=== PATIENT | male | born 1975 | race Caucasian/White ===

== ENCOUNTER → 2016-10-16 08:13 | Outpatient (CLI) | payer BC ==
[2014-12-28 11:50] VITALS: BMI 28.1
[~2016-10-16 08:13] MED LIST: PREDNISONE10 MG
== END ==
LOC: D.MRI 08:13
DX: G35 Multiple sclerosis (principal)

== ENCOUNTER → 2016-11-22 08:05 | Outpatient (CLI) | payer BC ==
[2014-12-28 11:50] VITALS: BMI 28.1
[2016-11-22 08:38] LABS: BASOPHILS 0.2 % (0.0-2.0); EOSINOPHILS 2.6 % (0-7); HEMATOCRIT 47.5 % (42.0-54.0); HEMOGLOBIN 17.3 g/dL (13.5-17.5); IMMATURE GRANULOCYTES 0.6 % (0-5); LYMPHOCYTES 33.9 % (15-50); MCH 31.3 pg (26.0-34.0); MCHC 36.4 g/dL (31.0-37.0); MCV 85.9 fL (80.0-100.0); MEAN PLATELET VOLUME 10.1 fL (7.4-10.4); NEUTROPHILS 54.7 % (40-80); PLATELET COUNT 185 10x3/uL (130-400); RBC 5.53 10x6/uL (4.20-6.10)
== END | disposition home or self-care (01) ==
LOC: D.LABREF 08:05
PROVIDERS: Psychiatry & Neurology Neurology
DX: G35 Multiple sclerosis (principal); Z79.899 Other long term (current) drug therapy; M25.50 Pain in unspecified joint

== ENCOUNTER → 2018-02-17 08:19 | Outpatient (CLI) | payer BC ==
[2014-12-28 11:50] VITALS: BMI 28.1
[2018-02-17 13:46] LABS: BASOPHILS 0.6 % (0-2); EOSINOPHILS 2.2 % (0-7); HEMATOCRIT 47.6 % (42.0-54.0); HEMOGLOBIN 17.7 g/dL (13.5-17.5); IMMATURE GRANULOCYTES 0.8 % (0-5); LYMPHOCYTES 27.3 % (15-50); MCH 31.6 pg (26.0-34.0); MCHC 37.2 g/dL (31.0-37.0); MEAN PLATELET VOLUME 10.2 fL (7.4-10.4); MONOCYTES 7.2 % (2-11); NEUTROPHILS 61.9 % (40-80); PLATELET COUNT 214 10x3/uL (130-400); RDW 12.7 % (11.5-14.5); WBC 6.4 10x3/uL (4.8-10.8)
[2018-02-17 14:20] LABS: ALBUMIN 4.1 g/dL (3.4-5.0); BILIRUBIN - DIRECT 0.14 mg/dL (0.00-0.30); BILIRUBIN - INDIRECT 0.47 mg/dL (0.00-1.00); BILIRUBIN - TOTAL 0.61 mg/dL (0.2-1.3); PROTEIN - SERUM 7.4 g/dL (6.4-8.2)
== END | disposition home or self-care (01) ==
LOC: D.LAB 08:19
PROVIDERS: Psychiatry & Neurology Neurology
DX: Z51.81 Encounter for therapeutic drug level monitoring (principal); Z79.899 Other long term (current) drug therapy

== ENCOUNTER → 2018-02-19 12:27 | Outpatient (CLI) | payer BC ==
[2014-12-28 11:50] VITALS: BMI 28.1
== END | disposition home or self-care (01) ==
LOC: D.MRI 12:27
DX: G35 Multiple sclerosis (principal)

== ENCOUNTER 2018-03-22 10:05 | Outpatient (CLI) | payer BC ==
[2014-12-28 11:50] VITALS: BMI 28.1
== END 2018-03-22 15:10 | disposition home or self-care (01) ==
LOC: D.OPS 10:05
DX: G35 Multiple sclerosis (principal)

== ENCOUNTER 2018-03-23 10:06 | Outpatient (CLI) | payer BC ==
[~2018-03-23] VITALS: Ht 180.3 cm; Wt 93.2 kg
[2018-03-23 10:21] VITALS: Ht 180.3 cm; Wt 93.2 kg
== END 2018-03-23 14:12 | disposition home or self-care (01) ==
LOC: D.OPS 10:06
DX: G35 Multiple sclerosis (principal)

== ENCOUNTER 2018-03-24 08:16 | Outpatient (CLI) | payer BC ==
[2018-03-22 12:07] VITALS: BMI 28.6
[~2018-03-24] VITALS: Ht 180.3 cm; Wt 93.2 kg
[2018-03-24 09:50] VITALS: Ht 180.3 cm; Wt 93.2 kg
== END 2018-03-24 12:58 | disposition home or self-care (01) ==
LOC: D.OPS 08:16
DX: G35 Multiple sclerosis (principal)

== ENCOUNTER → 2018-05-27 06:26 | Outpatient (CLI) | payer BC ==
[2018-03-24 09:50] VITALS: BMI 28.6
[2018-05-30 10:39] LABS: BASOPHILS 0.2 % (0-2); EOSINOPHILS 2.5 % (0-7); HEMATOCRIT 48.1 % (42.0-54.0); HEMOGLOBIN 17.9 g/dL (13.5-17.5); IMMATURE GRANULOCYTES 0.4 % (0-5); LYMPHOCYTES 25.2 % (15-50); MCH 31.6 pg (26.0-34.0); MCHC 37.2 g/dL (31.0-37.0); MCV 84.8 fL (80.0-100.0); MEAN PLATELET VOLUME 10.4 fL (7.4-10.4); MONOCYTES 8.2 % (2-11); NEUTROPHILS 63.5 % (40-80); PLATELET COUNT 172 10x3/uL (130-400); RBC 5.67 10x6/uL (4.20-6.10); RDW 12.9 % (11.5-14.5); WBC 4.7 10x3/uL (4.8-10.8)
[2018-05-30 11:16] LABS: BILIRUBIN - DIRECT 0.14 mg/dL (0.00-0.30)
[2018-05-30 11:21] LABS: BILIRUBIN - INDIRECT 0.26 mg/dL (0.00-1.00); BILIRUBIN - TOTAL 0.4 mg/dL (0.2-1.3); PROTEIN - SERUM 6.5 g/dL (6.4-8.2)
[2018-05-30 11:22] LABS: ALBUMIN 3.8 g/dL (3.4-5.0)
== END | disposition home or self-care (01) ==
LOC: D.LABREF 06:26
PROVIDERS: Psychiatry & Neurology Neurology
DX: G35 Multiple sclerosis (principal)

== ENCOUNTER → 2018-12-24 04:33 | Outpatient (CLI) | payer BC ==
[2018-03-24 09:50] VITALS: BMI 28.6
[2018-12-24 08:31] LABS: BASOPHILS 0.4 % (0-2); EOSINOPHILS 1.9 % (0-7); HEMATOCRIT 48.4 % (42.0-54.0); HEMOGLOBIN 17.7 g/dL (13.5-17.5); IMMATURE GRANULOCYTES 0.8 % (0-5); LYMPHOCYTES 30.1 % (15-50); MCH 31.1 pg (26.0-34.0); MCHC 36.6 g/dL (31.0-37.0); MCV 84.9 fL (80.0-100.0); MEAN PLATELET VOLUME 10.7 fL (7.4-10.4); MONOCYTES 8.2 % (2-11); NEUTROPHILS 58.6 % (40-80); PLATELET COUNT 189 10x3/uL (130-400); RDW 13.1 % (11.5-14.5); WBC 4.9 10x3/uL (4.8-10.8)
[2018-12-24 08:42] LABS: ALBUMIN 3.9 g/dL (3.4-5.0); BILIRUBIN - DIRECT 0.12 mg/dL (0.00-0.30); BILIRUBIN - INDIRECT 0.36 mg/dL (0.00-1.00); BILIRUBIN - TOTAL 0.48 mg/dL (0.2-1.3); PROTEIN - SERUM 7.3 g/dL (6.4-8.2)
== END | disposition home or self-care (01) ==
LOC: D.LABREF 04:33
PROVIDERS: ATTEND Psychiatry & Neurology Neurology
DX: G35 Multiple sclerosis (principal); Z51.81 Encounter for therapeutic drug level monitoring; Z79.899 Other long term (current) drug therapy

== ENCOUNTER → 2018-12-30 08:24 | Outpatient (CLI) | payer BC ==
[2018-03-24 09:50] VITALS: BMI 28.6
== END | disposition home or self-care (01) ==
LOC: D.MRI 12-27 11:54
PROVIDERS: ATTEND Psychiatry & Neurology Neurology
DX: G35 Multiple sclerosis (principal)

== ENCOUNTER → 2021-03-06 12:45 | Outpatient (CLI) | payer BC ==
[2018-03-24 09:50] VITALS: BMI 28.6
== END | disposition home or self-care (01) ==
LOC: D.MRI 12:45
PROVIDERS: ATTEND Psychiatry & Neurology Neurology
DX: G35 Multiple sclerosis (principal)

== ENCOUNTER → 2021-03-15 13:48 | Outpatient (CLI) | payer BC ==
[2018-03-24 09:50] VITALS: BMI 28.6
== END | disposition home or self-care (01) ==
LOC: D.MRI 13:48
PROVIDERS: ATTEND Psychiatry & Neurology Neurology
DX: G35 Multiple sclerosis (principal)

== ENCOUNTER 2021-03-20 12:25 | Outpatient (CLI) | payer BC ==
[~2021-03-20] VITALS: Ht 177.8 cm; Wt 86.4 kg
[2021-03-20 13:16] VITALS: BP 136/92; Ht 177.8 cm; Wt 86.4 kg
--- NOTE | 2021-03-20 13:25 | NUR ---
1305 IV STARTED IN LEFT FOREARM WITH 22G ANGIOCATH. EXCELLENT BLOOD RETURN. INT FLUSHED WITH 10CC NS.
== END 2021-03-20 16:00 | disposition home or self-care (01) ==
LOC: D.OPS 12:25
PROVIDERS: ATTEND Psychiatry & Neurology Neurology
DX: G35 Multiple sclerosis (principal)

== ENCOUNTER 2021-03-21 12:41 | Outpatient (CLI) | payer BC ==
[2021-03-20 13:16] VITALS: BMI 27.3
--- NOTE | 2021-03-21 14:12 | NUR ---
1405 PT STATES THAT HE FELT BAD AT HOME LAST NIGHT AFTER YESTERDAY'S STEROID INFUSION. HE DESCRIBED IT BURNING IN HIS LUNGS AND GI IRRITATION. HE STATED HIS OXYGEN LEVEL WAS 94% WHILE HE FELT LIKE HIS LUNGS WERE BURNING AND THAT HE USED SOME OF HIS 'S OXYGEN DURING THAT TIME. HE HAS NOT CONTACTED HIS NEUROLOGIST REGARDING HIS CONCERNS ABOUT STEROID INFUSION. HE ALSO REPORTED HAVING TACHYCARDIA LAST NIGHT. PT WANTS TO HAVE 2ND STEROID INFUSION. CALL LIGHT AT BEDSIDE. PT HAS BEEN INSTRUCTED TO NOTIFY NURSING STAFF IF HAVING ANY PROBLEMS.
--- NOTE | 2021-03-21 15:27 | NUR ---
1507 STEROID INFUSION IS COMPLETE. NO SWELLING OR REDNESS AT IV SITE. INT FLUSHED WITH 10CC NS AND CLAMP CLOSED. IV SITE WRAPPED WITH COBAN TO PROTECT INT TUBING. PT TO RETURN TOMORROW FOR LAST STEROID INFUSION.
== END 2021-03-21 15:21 | disposition home or self-care (01) ==
LOC: D.OPS 12:41
PROVIDERS: ATTEND Psychiatry & Neurology Neurology
DX: G35 Multiple sclerosis (principal)

== ENCOUNTER 2021-03-22 12:22 | Outpatient (CLI) | payer BC ==
[~2021-03-22] VITALS: Ht 177.8 cm; Wt 86.4 kg
[2021-03-22 14:07] VITALS: Ht 177.8 cm; Wt 86.4 kg
--- NOTE | 2021-03-22 15:40 | NUR ---
1535 IV REMOVED AND INSTRUCTIONS GIVEN
== END 2021-03-22 15:41 | disposition home or self-care (01) ==
LOC: D.OPS 12:22
PROVIDERS: ATTEND Psychiatry & Neurology Neurology
DX: G35 Multiple sclerosis (principal)

== ENCOUNTER → 2021-04-12 03:55 | Outpatient (CLI) | payer BC ==
[2021-03-22 14:07] VITALS: BMI 27.3
[2021-04-12 07:08] LABS: BASOPHILS 1.2 % (0-2); EOSINOPHILS 2.4 % (0-7); HEMATOCRIT 45.7 % (42.0-54.0); HEMOGLOBIN 16.4 g/dL (13.5-17.5); LYMPHOCYTES 31.4 % (15-50); MCH 29.6 pg (26.0-34.0); MCHC 35.8 g/dL (31.0-37.0); MCV 82.8 fL (80.0-100.0); MEAN PLATELET VOLUME 7.3 fL (7.4-10.4); MONOCYTES 6.9 % (2-11); NEUTROPHILS 58.1 % (40-80); RBC 5.53 10x6/uL (4.20-6.10); RDW 13.7 % (11.5-14.5); WBC 5.8 10x3/uL (4.8-10.8)
[2021-04-12 07:10] LABS: PLATELET COUNT 308 10x3/uL (130-400)
[2021-04-13 08:13] LABS: HEP B CORE AB TOTAL Negative (Negative)
== END | disposition home or self-care (01) ==
LOC: D.LAB 03:55 → D.LABREF 03:55
PROVIDERS: ATTEND Psychiatry & Neurology Neurology
DX: G35 Multiple sclerosis (principal); Z79.899 Other long term (current) drug therapy